=== PATIENT | male | born 1990 | race Caucasian/White ===

== ENCOUNTER 2016-03-03 18:34 | Emergency (ER) | payer SELFPAY ==
[2016-03-03 18:55] VITALS: TEMP 99.4; BMI 25.9
[2016-03-03 19:05] LABS: AUTOMATED BASOPHIL 0.5 % (0-2); AUTOMATED EOSINOPHIL 1.2 % (0-5); AUTOMATED LYMPH 14.7 % (17-44); AUTOMATED MONOCYTE 8.7 % (3-10); AUTOMATED NEUTROPHIL 74.9 % (45-76); MPV 9.1 fL (7.4-10.4)
[2016-03-03 19:07] LABS: RBC/URINE 0-2 (0-2)
[2016-03-03 19:09] LABS: LEUKOCYTES/URINE NEG (NEGATIVE); NITRITE/URINE NEG (NEGATIVE); URINE OCCULT BLOOD NEG (NEG/TRACE)
[2016-03-03 19:15] LABS: BLOOD UREA NITROGEN 13 MG/DL (9-20); CALCULATED OSMOLALITY 271 MOs/Kg (270-290); CHLORIDE 108 mEq/L (98-107); GLUCOSE 93 MG/DL (70-99); SODIUM LEVEL 141 mEq/L (137-146); TOTAL PROTEIN 7.4 G/DL (6.3-8.2)
[2016-03-03] MEDS ORDERED: AMOXICILLIN/CLAVULANATE 875 MG TAB PO ONE (20:01)
[2016-03-03] MEDS ORDERED: OXYCODONE HCL 5 MG TABLET PO ONE (20:01)
--- NOTE | 2016-03-03 20:05 | EDPRACDOC ---
- General Information Chief Complaint: Blood Pressure (Problems) Stated Complaint: ABDOMINAL PAIN Time Seen by Provider: 03/03/16 19:56 Information Source: Patient Mode Of Arrival: Car Home Medications: Home Medications Penicillin V Potassium 500 mg PO TID #30 tablet 09/26/12 Pentazocine HCl/Naloxone HCl [[place] Nx Tablet] 1 each PO Q4-6H #14 tablet 09/26 Amoxicillin/Clavulanate Potas. [Augmentin] 875 mg PO BID #20 tab 03/03/16 Oxycodone Immediate Release [Oxycodone Immediate Release (OxyIR)] 5 mg PO Q6H PRN #20 tab 03/03/16 Allergies/Adverse Reactions: Allergies Allergy/AdvReac Type Severity Reaction Status Date / Time No Known Allergies Allergy Verified 03/03/16 18:55 - History of Present Illness Onset: DIRECTOR INTEGRATED HPI: PT PRESENTS WITH LEFT UPPER TOOTH PAIN THAT HAS BEEN WORSENING FOR THE PAST WEEK. STATES HE HAS BEEN TAKING A LOT OF IBUPROFEN WHICH IS CAUSING HIM TO HAVE ABDOMINAL AND BACK PAIN. PT PRESENTS WITH MULTIPLE DENTAL CARIES AND BROKEN TEETH. Reported Tooth Problem: LEFT UPPER MOLAR Pain Severity: Reports: Moderate Relevant History of: Reports: None Modifying Factors: improves with: Heat, Cold, Chewing Associated Signs and Symptoms: Reports: Fever, Chills ED Past Medical History - History Reviewed Yes Nurses notes reviewed and agree except as marked EDM Review of Systems - Review of Systems ROS Negative Except as Marked: Yes All systems reviewed and were negative except as marked - Physical Exam Constitutional: Alert (PT APPEARS UNCOMFORTABLE) Oriented to: Time, Person, Place Last recorded Vital Signs: Last Vital Signs Temp 99.4 F 03/03/16 18:40 Pulse 85 03/03/16 18:40 Resp 18 03/03/16 18:40 BP 133/59 L 03/03/16 18:40 Pulse Ox 98 03/03/16 18:40 Oxygen Pulse Oxygen Saturation 98 O2 Device Room Air Oxygen Flow Rate Fraction of Inspired Oxygen ( FIO2) - HEENT Head: Normal ( normocephalic) Eye Exam: Normal (PERRL, EOMI, Sclera white) Oropharynx: Normal (Pharynx:Moist without exudate,Gums-no swelling) Nose: No Symptoms Reported (septum midline) Neck: Normal (FROM, trachea at midline) - Respiratory/Cardiovascular Respiratory: Normal - CTA (BBS clear to auscultation without adventitious sounds ) Cardiovascular: Normal (RRR without murmur, gallop or rub) - GI Auscultation: Normal (NABS) Palpation: Normal (Soft,No rebound or guarding, non distended) Tenderness: Non tender Green's Sign: Negative Rectal Exam: Deferred - Musculoskeletal Back: Normal (Non-Tender) Extremities: Normal (Normal tone, Pulses 2+ No cyanosis or edema, FROM) - Integumentary Skin: Normal, Warm, Dry Lymphatics: Normal (no adenopathy) - Neurologic Memory Impaired: Normal Motor Function: Normal (Normal tone, Pulses 2+ No cyanosis or edema, FROM) Cranial Nerve: Normal (CN II-X11 intact sensation, strength 5/5) Cerebellar: Normal Mood Description: Normal Perception: Normal ED Tooth Problem Exam - HEENT Face: Normal Teeth: Left: Molar-1 Upper (BROKEN WITH CARIES), Molar-2 Upper (BROKEN WITH CARIES) Gingiva: Swelling, Red Palate: Normal Mouth Range of Motion: Normal Sinuses: Normal Oropharynx: Normal Neck: Normal - Differential Diagnosis Periodontal Abscess, Tooth Fracture - Results 03/03/16 18:55 03/03/16 18:55 WBC 11.9 xk/uL (3.8-10.8) H 03/03/16 18:55 RBC 4.45 xM/uL (4.70-6.10) L 03/03/16 18:55 Hgb 13.2 g/dL (14.0-18.0) L 03/03/16 18:55 Hct 39.1 % (42-52) L 03/03/16 18:55 MCV 88 fL (80-94) 03/03/16 18:55 MCH 29.6 pg (27-32) 03/03/16 18:55 MCHC 33.7 g/dl (33-36) 03/03/16 18:55 RDW 13.8 % (11.5-14.5) 03/03/16 18:55 Plt Count 152 xk/uL (130-400) 03/03/16 18:55 MPV 9.1 fL (7.4-10.4) 03/03/16 18:55 Neut % (Auto) 74.9 % (45-76) 03/03/16 18:55 Lymph % (Auto) 14.7 % (17-44) L 03/03/16 18:55 [place] % (Auto) 8.7 % (3-10) 03/03/16 18:55 Eos % (Auto) 1.2 % (0-5) 03/03/16 18:55 Baso % (Auto) 0.5 % (0-2) 03/03/16 18:55 Absolute Neuts (auto) 8.81 xk/uL (1.7-8.2) H 03/03/16 18:55 Absolute Lymphs (auto) 1.67 xk/uL (0.65-4.75) 03/03/16 18:55 Sodium 141 mEq/L (137-146) 03/03/16 18:55 Potassium 3.3 mEq/L (3.5-5.1) L 03/03/16 18:55 Chloride 108 mEq/L (98-107) H 03/03/16 18:55 Carbon Dioxide 20 mMOL/L (22-33) L 03/03/16 18:55 Anion Gap 16 mEq/L (8-16) 03/03/16 18:55 BUN 13 MG/DL (9-20) 03/03/16 18:55 Creatinine 0.80 MG/DL (0.66-1.25) 03/03/16 18:55 Estimated GFR (MDRD) > 60 mL/min (>=60) 03/03/16 18:55 Glucose 93 MG/DL (70-99) 03/03/16 18:55 Calculated Osmolality 271 MOs/Kg (270-290) 03/03/16 18:55 Calcium 9.0 MG/DL (8.4-10.2) 03/03/16 18:55 Total Bilirubin 0.5 MG/DL (0.2-1.3) 03/03/16 18:55 AST 18 IU/L (17-59) 03/03/16 18:55 ALT 26 IU/L (21-72) 03/03/16 18:55 Alkaline Phosphatase 52 IU/L (38-126) 03/03/16 18:55 Total Protein 7.4 G/DL (6.3-8.2) 03/03/16 18:55 Albumin 4.2 G/DL (3.5-5.0) 03/03/16 18:55 Urine Color Yellow 03/03/16 18:55 Urine Clarity Cldy 03/03/16 18:55 Urine pH 5.0 (5.0-8.0) 03/03/16 18:55 Ur Specific [place] 1.020 (1.003-1.035) 03/03/16 18:55 Urine Protein Neg (NEG/TRACE) 03/03/16 18:55 Urine Glucose (UA) Neg (NEGATIVE) 03/03/16 18:55 Urine Ketones Neg (NEGATIVE) 03/03/16 18:55 Urine Occult Blood Neg (NEG/TRACE) 03/03/16 18:55 Urine Nitrite Neg (NEGATIVE) 03/03/16 18:55 Urine Bilirubin Neg (NEGATIVE) 03/03/16 18:55 Urine Urobilinogen 0.2 MG/DL (0-1) 03/03/16 18:55 Ur Leukocyte Esterase Neg (NEGATIVE) 03/03/16 18:55 Urine RBC 0-2 (0-2) 03/03/16 18:55 Urine WBC 2-5 (0-2) H 03/03/16 18:55 Ur Epithelial Cells Occ 03/03/16 18:55 Urine Bacteria Few (NEG/FEW) 03/03/16 18:55 Urine Mucus Occ (NEG/OCC) 03/03/16 18:55 Lab Results 03/03/16 03/03/16 03/03/16 18:55 18:55 18:55 WBC 11.9 H RBC 4.45 L Hgb 13.2 L Hct 39.1 L MCV 88 MCH 29.6 MCHC 33.7 RDW 13.8 Plt Count 152 MPV 9.1 Neut % (Auto) 74.9 Lymph % (Auto) 14.7 L [place] % (Auto) 8.7 Eos % (Auto) 1.2 Baso % (Auto) 0.5 Absolute Neuts (auto) 8.81 H Absolute Lymphs (auto) 1.67 Sodium 141 Potassium 3.3 L Chloride 108 H Carbon Dioxide 20 L Anion Gap 16 BUN 13 Creatinine 0.80 Estimated GFR (MDRD) > 60 Glucose 93 Calculated Osmolality 271 Calcium 9.0 Total Bilirubin 0.5 AST 18 ALT 26 Alkaline Phosphatase 52 Total Protein 7.4 Albumin 4.2 Urine Color Yellow Urine Clarity Cldy Urine pH 5.0 Ur Specific [place] 1.020 Urine Protein Neg Urine Glucose (UA) Neg Urine Ketones Neg Urine Occult Blood Neg Urine Nitrite Neg Urine Bilirubin Neg Urine Urobilinogen 0.2 Ur Leukocyte Esterase Neg Urine RBC 0-2 Urine WBC 2-5 H Ur Epithelial Cells Occ Urine Bacteria Few Urine Mucus Occ Decision Time to Discharge: 20:08 - Departure Disposition: Home Condition: Stable Final Diagnosis: Acute periodontal abscess Instructions: Dental Abscess (ED), Dental Caries (ED) Education/Counseling Given To: Patient Education/Counseling Given Regarding: Diagnosis, Treatment, Prognosis, Follow Up Referrals: [facility] [NonStaff] - One Week Prescriptions: Amoxicillin/Clavulanate Potas. [Augmentin] 875 mg PO BID #20 tab Oxycodone Immediate Release [Oxycodone Immediate Release (OxyIR)] 5 mg PO Q6H PRN #20 tab PRN Reason: Pain Additional Instructions: INCREASE FLUID INTAKE. FOLLOW UP WITH PRIMARY CARE PROVIDER NEXT WEEK. TAKE ALL ANTIBIOTICS PRESCRIBED. RETURN TO THE ED FOR WORSENING SYMPTOMS OR CONCERNS. STOP TAKING LARGE QUANTITIES OF IBUPROFEN THIS CAN BE VERY DANGEROUS FOR YOUR HEALTH. DO NOT TAKE LARGE QUANTITIES OF TYLENOL THIS CAN PUT YOU IN LIVER FAILURE. FOLLOW UP WITH DENTIST [facility].
[2016-03-03 20:29] VITALS: BP 131/63; PULSE 77
== END 2016-03-03 20:24 | disposition home or self-care (01) ==
LOC: ED 18:34
DX: K05.219 Aggressive periodontitis, localized, unspecified severity (principal)
CPT/HCPCS: 36415; 80053; 81001; 85025; 99283; J3490